=== PATIENT | female | born 1985 | race Caucasian/White ===

== ENCOUNTER 2016-11-08 11:29 | Emergency (ER) | payer OTHER ==
[2016-11-08] MEDS ORDERED: HYDROMORPHONE HCL 1 MG/ML SYRINGE ONE ×2 (12:38→14:15)
[2016-11-08] MEDS ORDERED: ONDANSETRON 4 MG/2ML 2 ML VIAL ONE (12:38)
[2016-11-08] MEDS ORDERED: LACTATED RINGERS 1,000 ML ONE (12:38)
[2016-11-08 13:02] LABS: ABSOLUTE NEUTROPHIL COUNT 8.9 K/mm3 (1.8-7.7); BASO # 0.1 K/mm3 (0.0-0.2); BASO % 0.4 % (0.2-1.0); EOS # 0.1 (0.0-0.5); EOS % 0.6 % (0.9-2.9); HEMATOCRIT 35.1 % (37.0-47.0); HEMOGLOBIN 11.6 gm/l (12.0-16.0); IMM NEUT # 0.1 K/mm3 (0-0.2); IMM NEUT% 0.4 % (0-1); LYMPH # 1.7 (1.0-4.8); LYMPH % 14.8 % (15-45); MEAN CELL VOLUME 91.2 fl (81.0-99.0); MEAN CORPUSCULAR HEMOGLOBIN 30.1 pg (27.0-31.0); MEAN PLATELET VOLUME 9.1 fl (7.4-10.4); MONO # 0.9 (0.0-0.8); MONO % 7.4 % (4-12); NEUT % 76.4 % (43-75); PLATELET COUNT 285 K/mm3 (130-400); RED CELL DISTRIBUTION WIDTH 11.7 % (11.5-14.5)
[2016-11-08 13:24] LABS: ALB/GLOB RATIO 1.2 (>1.0); ALBUMIN 3.4 gm/dL (3.5-5.7); CALCIUM 8.6 mg/dL (8.6-10.3)
--- NOTE | 2016-11-08 13:32 | CT ---
HEAD W/O CON COMPARISON: None HISTORY: Headache for 3 days per TECHNIQUE: Using a [employer] [address] scanner, images were obtained through the head. An automated dose reduction technique was used to minimize patient radiation dose. DOSE INFORMATION: CTDIvol (mGy): 51.70 DLP(mGycm): 930.10 FINDINGS: Mass: None Intracranial Hemorrhage: None Acute Infarction: None Cerebral hemispheres: Normal Basal ganglia: Normal Thalami: Normal Brainstem: Normal Cerebellum: Normal Ventricles: Normal Basilar cisterns: Normal Corpus callosum: Normal Pituitary fossa: Normal Middle ears and mastoid air cells: Normal Orbits and sinuses: Normal Skull and scalp: Normal Dural sinuses and vessels: Normal IMPRESSION: Normal study. The report was sent to the emergency department electronic medical record system 11/08/2016 at 13:33
[2016-11-08 15:56] LABS: CSF APPEARANCE CLEAR; CSF COLOR COLORLESS
[2016-11-08 15:58] LABS: GLUCOSE,CSF 57 mg/dL (70% OF SERUM)
[2016-11-08 16:19] LABS: CSF WBC < 10.0 /uL (<10)
[2016-11-08 16:26] LABS: CSF RBC 0 k/uL
== END 2016-11-08 16:45 | disposition home or self-care (01) ==
LOC: ED 11:29
DX: R51 Headache (principal); R50.9 Fever, unspecified; B34.9 Viral infection, unspecified; I47.1 Supraventricular tachycardia; R42 Dizziness and giddiness
CPT/HCPCS: 84703; 89051; 85025; 87070; 80053; 82945; 87880; 84157; 36415 ×3; 70450; 96375; 96376; 99284 ×2; 62270 ×2; 96374; 96361; J1170 ×2; J2405; J7120

== ENCOUNTER 2016-11-10 13:37 | Emergency (ER) | payer OTHER ==
[2016-11-10] MEDS ORDERED: ALBUTEROL/IPRATROPIUM 2.5/0.5 MG 3 ML/EACH DOSE ONE (14:35)
[2016-11-10] MEDS ORDERED: DIPHENHYDRAMINE HCL 50 MG/1 ML VIAL ONE (14:37)
[2016-11-10] MEDS ORDERED: METOCLOPRAMIDE HCL 5 MG/ML 2ML VIAL ONE (14:37)
[2016-11-10] MEDS ORDERED: SODIUM CHLORIDE 0.9% 1,000 ML ONE ×2 (14:37→16:11)
[2016-11-10] MEDS ORDERED: ONDANSETRON 4 MG/2ML 2 ML VIAL ONE (14:37)
[2016-11-10 14:49] LABS: ABSOLUTE NEUTROPHIL COUNT 8.1 K/mm3 (1.8-7.7); BASO # 0.1 K/mm3 (0.0-0.2); BASO % 0.6 % (0.2-1.0); EOS # 0.2 (0.0-0.5); EOS % 1.4 % (0.9-2.9); HEMATOCRIT 38.6 % (37.0-47.0); HEMOGLOBIN 12.8 gm/l (12.0-16.0); IMM NEUT # 0.1 K/mm3 (0-0.2); IMM NEUT% 0.5 % (0-1); LYMPH # 1.9 (1.0-4.8); LYMPH % 17.7 % (15-45); MEAN CELL VOLUME 91.3 fl (81.0-99.0); MEAN CORPUSCULAR HEMOGLOBIN 30.3 pg (27.0-31.0); MEAN CORPUSCULAR HGB CONC 33.2 g/dl (33.0-37.0); MEAN PLATELET VOLUME 9.4 fl (7.4-10.4); MONO # 0.7 (0.0-0.8); NEUT % 73.8 % (43-75); PLATELET COUNT 364 K/mm3 (130-400); RED CELL DISTRIBUTION WIDTH 11.4 % (11.5-14.5)
--- NOTE | 2016-11-10 15:03 | RAD ---
History: Wheezing. Comparison: None. Technique: 2 views Findings: The soft tissue and bony structures are unremarkable. The heart size is appropriate. No infiltrate, effusion or pneumothorax is observed. The hilar and mediastinal structures are normal. Impression: 1. A negative 2 view chest
[2016-11-10 15:11] LABS: ALB/GLOB RATIO 1.1 (>1.0); ALBUMIN 3.4 gm/dL (3.5-5.7); CALCIUM 8.7 mg/dL (8.6-10.3)
== END 2016-11-10 18:08 | disposition home or self-care (01) ==
LOC: ED 13:37
DX: R51 Headache (principal); E86.0 Dehydration; R06.2 Wheezing
CPT/HCPCS: 85025; 80053; 71020; 94640; 96375 ×2; 99284; 96374; 96361 ×2; 99283; J1200; J2765; J2405; J7030 ×2